=== PATIENT | female | born 1990 | race Two or more races ===

== ENCOUNTER → 2019-06-11 05:31 | Outpatient (CLI) | payer MEDICAID ==
[2015-09-24 07:50] VITALS: BMI 23.8
[~2019-06-11 05:31] MED LIST: HYDROCODON-ACE1 EAC7 PO; IBUPROFEN600 MG PO; PERCOCET 5-3251 TAB PO; PRENATAL COMPLE1 TAB PO; PRENAVITE1 TAB PO
[2019-06-11 06:06] LABS: BILIRUBIN NEGATIVE (NEGATIVE); GLUCOSE NEGATIVE (NEGATIVE); KETONE NEGATIVE (NEGATIVE); NITRITE NEGATIVE (NEGATIVE); SPECIFIC GRAVITY 1.005 (1.005-1.020); UROBILINOGEN NORMAL (NORMAL)
[2019-06-11 06:08] LABS: UDS - AMPHET NEGATIVE QUAL (NEGATIVE); UDS - BARB NEGATIVE QUAL (NEGATIVE); UDS - BENZO NEGATIVE QUAL (NEGATIVE); UDS - COCAINE NEGATIVE QUAL (NEGATIVE); UDS - OPIATE NEGATIVE QUAL (NEGATIVE); UDS - PCP NEGATIVE QUAL (NEGATIVE); UDS - THC NEGATIVE QUAL (NEGATIVE)
== END | disposition home or self-care (01) ==
LOC: D.LDO 05:31
PROVIDERS: ATTEND Obstetrics & Gynecology
DX: O26.893 Other specified pregnancy related conditions, third trimester (principal); Z3A.39 39 weeks gestation of pregnancy; N85.8 Other specified noninflammatory disorders of uterus

== ENCOUNTER 2019-06-11 19:51 | Inpatient (IN) | payer MEDICAID ==
[~2019-06-11] VITALS: Ht 157.5 cm; Wt 73.6 kg
[~2019-06-11 19:51] MED LIST changes: -HYDROCODON-ACE1 EAC7 PO; -PRENAVITE1 TAB PO
[2019-06-11 21:14] LABS: HEMATOCRIT 41.5 % (36.0-48.0); HEMOGLOBIN 14.1 g/dL (12-16); MCH 30.8 pg (26.0-34.0); MCV 90.6 fL (80.0-100.0); MEAN PLATELET VOLUME 9.9 fL (7.4-10.4); RBC 4.58 10x6/uL (4.00-5.40); RDW 14.3 % (11.5-14.5); WBC 11.8 10x3/uL (4.8-10.8)
[2019-06-11 22:30] LABS: BILIRUBIN NEGATIVE (NEGATIVE); GLUCOSE NEGATIVE (NEGATIVE); KETONE NEGATIVE (NEGATIVE); NITRITE NEGATIVE (NEGATIVE); UROBILINOGEN NORMAL (NORMAL)
--- NOTE | 2019-06-12 00:19 | NUR ---
PT HOLDING INFANT, TO PT'S MOMS ARM, ADMISSION ASSESSMENT, HISTORY, AND MED REC DONE, SEE FLOW SHEET, PT REQUESTED AND SERVED FRESH H20, DENIES FURTHER NEEDS
[2019-06-12 00:29] VITALS: BP 119/65; Ht 157.5 cm; Wt 73.6 kg
[2019-06-12] MEDS ORDERED: PRENAVITE1 TAB PO (00:43)
--- NOTE | 2019-06-12 00:45 | NUR ---
OB CONSENTS EXPLAINED, SIGNED AND WITNESSED AT THIS TIME. COMPLETED LATE DUE TO PT IN ACTIVE LABOR UPON ARRIVAL TO LD UNIT.
--- NOTE | 2019-06-12 00:45 | NUR ---
SANDWICH TRAY AND FRESH L[place] SODA SERVED. PT'S MOTHER AT BEDSIDE. PT REPORTS ABD CRAMPING IS GETTING BETTER, RATES 4/10. DENIES FURTHER NEEDS AT THIS TIME.
--- NOTE | 2019-06-12 01:20 | NUR ---
PT AIR POLLUTION COMPLIANCE INSPECTOR LIGHT, PT FINISHED INFANT, PT READY TO TAKE A NAP, TO [facility] VIA OPEN CRIB CART PER THIS RN, PT REQUESTED AND SERVED FRESH H20, DENIES FURTHER NEEDS, BED IN LOW POSITION, SIDE RAILS X 2, CALL LIGHT IN REACH
--- NOTE | 2019-06-12 02:28 | NUR ---
PT RESTING, AROUSES TO OPENING OF DOOR, DENIES NEEDS AT THIS TIME, FOB ASLEEP ON COUCH
--- NOTE | 2019-06-12 03:00 | NUR ---
ROUNDS MADE. PT RESTING QUEITLY IN LOW MARKS'S S/EYES CLOSED. RESP EVEN AND UNLABORED. PT OPENS EYES SPONTANEOUSLY W/THIS RN'S ENTRY TO THE ROOM. PT DENIES PAIN OR NEEDS AT THIS TIME. BED LOW, SIDE RAILS UP X 2. CALL LIGHT AND PHONE AT PT'S SIDE. PT'S MOTHER SLEEPING ON SOFA.
--- NOTE | 2019-06-12 04:15 | NUR ---
PT'S MOTHER TO NURSING STATION REQUEST OF WATER. BOTH [facility] AND PT'S PERSONAL WATER CONTAINER FILLED WITH FRESH WATER AND TAKEN TO PT' ROOM. PT REPORTS SHE IS HAVING ABD CRAMPING THAT SHE RATES 08/18. PERCOCET AND/OR MOTRIN OFFERED. PT REQUEST TO ONLY RECEIVE PERCOCET 5/325MG 1 TAB NOW. PT MEDICATED W/1 TAB PERCOCET 5/325MG. SEE EMAR. PT CURRENTLY AND DENIES FURTHER NEEDS AT THIS TIME.
--- NOTE | 2019-06-12 05:00 | NUR ---
PT RINGS CALL LIGHT. THIS RN TO BEDSIDE. PT REQUESTING ASSISTANCE W/SWADDLING BABY. BABY SWADDLED X 2 IN CRIB. PT'S PAIN REASSESSED. PT REPORTS PAIN IS GETTING BETTER. RATES IT 4/10. NO FURTHER PAIN INTERVENTIONS REQUESTED AT THIS TIME. DENIES ADDITIONAL NEEDS. PP TREAT BOX PROVIDED. BED LOW, SIDE RAILS UP X 2. CALL LIGHT AND PHONE AT PT'S SIE.
[2019-06-12 05:33] LABS: BASOPHILS 0.1 % (0-2); EOSINOPHILS 0.5 % (0-7); HEMATOCRIT 39.9 % (36.0-48.0); HEMOGLOBIN 13.3 g/dL (12-16); IMMATURE GRANULOCYTES 0.3 % (0-5); MCH 30.3 pg (26.0-34.0); MCHC 33.3 g/dL (31.0-37.0); MCV 90.9 fL (80.0-100.0); MEAN PLATELET VOLUME 10.5 fL (7.4-10.4); MONOCYTES 5.2 % (2-11); NEUTROPHILS 75.9 % (40-80); PLATELET COUNT 195 10x3/uL (130-400); RBC 4.39 10x6/uL (4.00-5.40); RDW 14.1 % (11.5-14.5)
[2019-06-12 05:38] LABS: WBC 15.1 10x3/uL (4.8-10.8)
--- NOTE | 2019-06-12 06:25 | NUR ---
PT RESTING WITH EYES CLOSED, RESP QUIET, NO DISTRESS NOTED, LEFT UNDISTURBED AT THIS TIME
[2019-06-12 07:38] VITALS: BP 116/60
--- NOTE | 2019-06-12 07:38 | NUR ---
SHIFT ASSESSMENT COMPLETED PER FLOWSHEET. VSS. FUNDUS FIRM, MIDLINE AND U2 WITH SMALL AMT RUBRA LOCHIA, NO CLOTS NOTED. REPORTS THAT SHE IS VOIDING AND PASSING FLATUS WITHOUT DIFFICULTY. R HAND SL FLUSHED, NO S/S OF INFILTRATION NOTED. PREPARING TO BF . PT'S MOTHER AT BEDSIDE, SUPPORTIVE AND ATTENTIVE TO PT AND INFANT NEEDS. POC DISCUSSED WITH BOTH, VERBALIZE UNDERSTANDING AND DENY QUESTIONS. BED IN LOW POSITION WITH SRUP X2. CALL LIGHT AND PHONE WITHIN REACH. C/O ABD CRAMPING FOLLOWING FUNDAL CHECK AND WITH BF 03/21, DENIES NEED FOR INTERVENTION AT THIS TIME, STATES THAT SHE WILL NOTIFY RN IF NEED FOR MEDS ARISES. WILL CONTINUE TO MONITOR.
--- NOTE | 2019-06-12 09:02 | NUR ---
ROUNDS MADE. PT IN SEMI FOWLERS POSITION WATCHING TV. DENIES NEEDS. ICE WATER AND COFFEE PROVIDED PER REQUEST. DENIES PAIN. BED IN LOW POSITION WITH SRUP X2. CALL LIGHT AND PHONE WITHIN REACH. WILL CONTINUE TO MONITOR.
--- NOTE | 2019-06-12 11:12 | NUR ---
LAYING ON R SIDE RESTING WITH EYES CLOSED, RESP REGULAR AND UNLABORED, NO S/S OF DISTRESS NOTED. PT NOT DISTURBED TO ALLOW FOR REST. WILL CONTINUE TO MONITOR. BED IN LOW POSITION WITH SRUP X2. CALL LIGHT AND PHONE WITHIN REACH.
--- NOTE | 2019-06-12 11:26 | NUR ---
C/O ABD CRAMPING 08/18. PAIN MGMT OPTIONS DISCUSSED. PT REQUESTED MOTRIN AND PERCOCET TOGETHER, PROVIDED PER PT REQUEST. PT ALSO REQUESTS STOOL SOFTENERS, REPORTS THAT SHE STRUGGLES WITH CONSTIPATION AT HOME AND NORMALLY TAKES COLACE OR MILK OF MAG IF PRUNE JUICE DOESN'T WORK. STATES THAT PRUNE JUICE HAS BEEN CAUSING CRAMPING THE PAST 2 TIMES THAT SHE USED IT. WILL NOTIFY DR. FLORES PER ORDERS.
--- NOTE | 2019-06-12 11:32 | NUR ---
DR. FLORES PAGED WITH IMMEDIATE CALLBACK. NOTIFIED OF PT CONCERN AND REQUEST FOR STOOL SOFTENERS. ORDERS REC'D.
--- NOTE | 2019-06-12 11:53 | NUR ---
COLACE GIVEN PER ORDER AND PT REQUEST. PT REQUESTS TO TAKE MILK OF MAGNESIA AT THIS TIME ALSO INSTEAD OF HS. PROVIDED PER PT REQUEST. DENIES ADDITIONAL NEEDS. BED IN LOW POSITION WITH SRUP X2. CALL LIGHT AND PHONE WITHIN REACH.
--- NOTE | 2019-06-12 12:16 | NUR ---
PAIN REASSESSMENT COMPLETED, DENIES PAIN AND NEEDS. WILL CONTINUE TO MONITOR.
--- NOTE | 2019-06-12 13:32 | NUR ---
ATTEMPTING TO BF. ASSISTANCE PROVIDED PER PT REQUEST WITH GETTING INFANT TO LATCH TO R BREAST. DENIES PAIN AND ADDITIONAL NEEDS. SIGNIFICANT OTHER AT BEDSIDE, SUPPORTIVE AND ATTENTIVE TO PT AND INFANT NEEDS. BED IN LOW POSITION WITH SRUP X2. CALL LIGHT AND PHONE WITHIN REACH. WILL CONTINUE TO MONITOR.
--- NOTE | 2019-06-12 15:16 | NUR ---
ROUNDS MADE. RESTING WITH EYES CLOSED IN SEMI FOWLERS POSITION. ICE WATER PROVIDED PER PT REQUEST. DENIES ADDITIONAL NEEDS. IN FOB'S ARMS. BED IN LOW POSITION WITH SRUP X2. CALL LIGHT AND PHONE WITHIN REACH. WILL CONTINUE TO MONITOR.
--- NOTE | 2019-06-12 16:48 | NUR ---
BF AT THIS TIME. PANTIES AND PADS PROVIDED. REQUESTS TO SHOWER FOLLOWING FEEDING. RN INSTRUCTED TO CALL USING CALL LIGHT AND RN WOULD CHANGE LINENS, VERBALIZES UNDERSTANDING. WATER PROVIDED. DENIES PAIN AND ADDITIONAL NEEDS.BED IN LOW POSITION WITH SRUP X2. CALL LIGHT AND PHONE WITHIN REACH. SIGNIFICANT OTHER REMAIN IN ROOM, ATTENTIVE AND SUPPORTIVE.
[2019-06-12 17:38] VITALS: BP 118/68
--- NOTE | 2019-06-12 17:38 | NUR ---
R HAND PIV D/C'D PER PT REQUEST, TIP INTACT. VSS. FUNDUS FIRM, MIDLINE AND U2 WITH SCANT RUBRA LOCHIA, NO CLOTS NOTED. UP TO SHOWER. LINENS CHANGED. SIGNIFICANT OTHER REMAINS IN ROOM. INFANT TO NBN PER PT REQUEST BY Alexis URIBE LPN. DENIES NEED FOR ASSIST FROM RN IN SHOWER, REPORTS THAT SPOUSE WILL ASSIST HER AND SHE WILL PULL CALL LIGHT IN BR IF ADDITIONAL ASSIST IS NEEDED. WILL CONTINUE TO MONITOR.
[2019-06-12 18:59] VITALS: BP 113/64
--- NOTE | 2019-06-12 19:00 | NUR ---
REC'D BEDSIDE REPORT FROM Yudy ZAMUDIO RN. REC'D PT IN LOW MARKS'S AWAKE WATCHING TV. PAIN ASSESSED. PT REPORTS ABD CRAMPING THAT SHE RATES 5/10. MOTRIN OFFERED. PT ACCEPTS. SEE EMAR. SHIFT ASSESSMENT COMPLETED. SEE FLOWSHEET. PT DENIES NEEDS AT THIS TIME. PM SHIFT POC DISCUSSED. PT VERBALIZES UNDERSTANDIN AND IS AGREEABLE. WHILE AT BEDSIDE, NBN NURSE ARRIVES W/BABY. PT'S BED IN LOW POSITION. SIDE RAILS UP X 2. CALL LIGHT AND PHONE AT PT'S SIDE.
--- NOTE | 2019-06-12 20:00 | NUR ---
ROUNDS MADE FOR PAIN REASSESSMENT. PT LYING IN BED AWAKE WATCHING TV. REPORTS PAIN IS SLOWLY GETTING BETTER. RATES IT 45/10. PT DENIES NEEDS AT THIS TIME.
--- NOTE | 2019-06-12 21:00 | NUR ---
ROUNDS MADE FOR PAIN REASSESSMENT AFTER PERCOCET ADMIN. PT SITTING UP IN BED CURRENTLY . PT REPORTS ABD CRAMPING IS GETTING BETTER. RATES PAIN 4/10. DENIES NEEDS AT THIS TIME.
--- NOTE | 2019-06-12 21:25 | NUR ---
PT RINGS CALL LIGHT REQUESTING FRESH WATER. THIS RN TO BEDSIDE TO OBTAIN PT'S [facility] MUG AND PERSONAL THERMOS. BOTH FILLED W/FRESH WATER AND SERVED. PAIN REASSESSED. PT NOW REPORTS PAIN 0/10. PT HAS SENT BABY TO [facility] SHE CAN NAP AT THIS TIME. PT DENIES FURTHER NEEDS. BED LOW, SIDE RAILS UP X 2. CALL LIGHT AND PHONE AT PT'S BEDSIDE.
--- NOTE | 2019-06-12 22:01 | NUR ---
ROUNDS MADE. PT RESTING TO RT SIDE W/EYES CLOSED. RESP EVEN AND UNLABORED. OPENS EYES SPONTANEOUSLY WHEN THE DOOR POPS AND THEN CLOSES THEM. PT LEFT UNDISTURBED AT THIS TIME.
--- NOTE | 2019-06-13 | NUR ---
ROUNDS MADE PER NBN NURSE Amy ACOSTA RN WHEN CHECKING ON NBN. PT HAS NO C/O OF PAIN AND ONLY REQUEST ADDITIONAL WATER TO DRINK. FRESH WATER SERVED PER Amy ACOSTA RN.
--- NOTE | 2019-06-13 02:05 | NUR ---
ROUNDS MADE. PT RESTING QUIETLY W/EYES CLOSED IN LOW MARKS'S. RESP EVEN AND UNLABORED. PT LEFT UNDISTURBED TO ALLOW FOR REST.
--- NOTE | 2019-06-13 03:59 | NUR ---
PT RINGS CALL LIGHT REQUESTING FRESH WATER. THIS RN TO BEDSIDE TO OBTAIN PT'S [facility] MUG AND PERSONAL THERMOS. PAIN ASSESSED. PT DENIES PAIN AT PRESENT. FRESH WATER SERVED. NO FURTHER NEEDS VOICED.
--- NOTE | 2019-06-13 07:07 | NUR ---
THIS RN AND A DERRICK RN TO BEDSIDE FOR BEDSIDE SHIFT REPORT. PT AA&O X 4. DENIES PAIN OR NEEDS AT THIS TIME.
--- NOTE | 2019-06-13 08:45 | NUR ---
AM ASSESSMENT COMPLETED. SEE FLOWSHEET, PT DENIES HEAVY BLEEDING OR PASSING CLOTS. PT DENIES ALL OTHER NEEDS AT THIS TIME. SRUP X2, CALL LIGHT AND PHONE WITHIN REACH.
[2019-06-13 08:50] VITALS: BP 114/61
--- NOTE | 2019-06-13 08:58 | NUR ---
PT REQUESTS PAIN MEDICATION, SEE EMAR FOR MED ADM BY THIS RN. MUG OF WATER/PINK MUG OF WATER SERVED TO PT AT HER REQUEST. PT CONTINUES TO DENY HEAVY BLEEDING OR PASSING CLOTS. PT DENIES ALL OTHER NEEDS AT THIS TIME. SRUP X2, CALL LIGHT AND PHONE WITHIN REACH.
[2019-06-13] MEDS ORDERED: HYDROCODON-ACE1 EAC7 PO (16:17)
[2019-06-13] MEDS ORDERED: IBUPROFEN600 MG PO (16:17)
--- NOTE | 2019-06-13 16:34 | NUR ---
PT REQUESTS PAIN MEDICATION, SEE EMAR FOR MED ADM BY THIS RN. MUG/PINK MUG OF WATER PROVIDED TO PT. PT DENIES ALL OTHER NEEDS AT THIS TIME. SRUP X 2, CALL LIGHT AND PHONE WITHIN REACH.
--- NOTE | 2019-06-13 16:40 | NUR ---
DISCHARGE INSTRUCTIONS EXPLAINED TO PT, WITH COPIES PROVIDED TO PT. PRESCRIPTIONS FOR MOTRIN AND NORCO GIVEN TO PT, ALONG WITH EMERGENCY SIGNS/SYMPTOMS SHEET, AND INSTRUCTION SHEETS. PT DENIES QUESTIONS.
--- NOTE | 2019-06-13 17:00 | NUR ---
PT TAKEN OUT BY WHEELCHAIR, IN STABLE CONDITION, WITH IN CARSEAT, TO PRIVATE VEHICLE, WITH SIG OTHER DRIVING.
[2019-06-14 07:12] LABS: RAPID PLASMA REAGIN Non Reactive (Non Reactive)
== END 2019-06-13 17:00 | disposition home or self-care (01) | DRG 807 ==
LOC: D.LDO 19:51 → D.LD 20:08
PROVIDERS: ADMIT Obstetrics & Gynecology; ATTEND Obstetrics & Gynecology
PROC: 10E0XZZ Delivery of Products of Conception, External Approach (ICD-10-PCS; principal; 2019-06-11)
PROC: 10907ZC Drainage of Amniotic Fluid, Therapeutic from Products of Conception, Via Natural or Artificial Opening (ICD-10-PCS; 2019-06-11)
PROC: 3E033VJ Introduction of Other Hormone into Peripheral Vein, Percutaneous Approach (ICD-10-PCS; 2019-06-11)
DX: O80 Encounter for full-term uncomplicated delivery (principal); Z37.0 Single live birth; Z3A.39 39 weeks gestation of pregnancy